=== PATIENT | female | born 1960 | race Caucasian/White ===

== ENCOUNTER → 2018-01-14 | Outpatient (CLI) | payer BC, OTHER ==
[~2018-01-14] MED LIST: ASPI81CH; CALCAVITD; KRILL OIL 3001 EACH
== END | disposition home or self-care (01) ==
LOC: PLD 10:32 → LAB SHORT 10:32
DX: L81.4 Other melanin hyperpigmentation (principal)
CPT/HCPCS: 88305

== ENCOUNTER 2021-06-18 08:11 | Day surgery (SDC) | payer OTHER ==
[~2021-06-18] VITALS: Ht 165.1 cm; Wt 76.7 kg
--- NOTE | 2021-06-18 09:24 | NUR ---
Ambulatory in Day Surgery History, Chart, Medications and Allergies reviewed before start of procedure. Lungs clear T/O to Auscultation. Patient confirms NPO status and agrees with scheduled surgery. Pre-Op teaching done. Pt verbalizes understanding. Patient States Post-Procedure ride home has been arranged.
--- NOTE | 2021-06-18 09:59 | NUR ---
06/18/21 0959 Shahida Ball History, Chart, Medications and Allergies reviewed before start of procedure. Patient confirms NPO status and agrees with scheduled surgery. 3-LEAD EKG REVIEWED WITH PHYSICIAN PRIOR TO START OF PROCEDURE. MONITOR INTACT WITH CONTINUOUS PULSE OXIMETRY AND INTERMITTENT BP. PATIENT DETERMINED TO BE ASA APPROPRIATE FOR PROPOFOL SEDATION PRIOR TO START OF PROCEDURE BY .
--- NOTE | 2021-06-18 10:16 | NUR ---
PT TOLERATING PO FLUIDS AND SNACK. RIDE INFORMED OF STATUS.
--- NOTE | 2021-06-18 10:36 | NUR ---
Discharge instructions reviewed with patient. Patient verbalizes understanding. Copy given to patient to take home. Discharged via wheelchair to private car for ride home
== END 2021-06-18 10:38 | disposition home or self-care (01) ==
LOC: ORSCMMR 08:11 → ORD 09:30 → ORSCSDS 09:30 → ORSCMMR 09:30
PROVIDERS: Internal Medicine Gastroenterology
PROC: 0DJD8ZZ Inspection of Lower Intestinal Tract, Via Natural or Artificial Opening Endoscopic (ICD-10-PCS; principal; 2021-06-18 09:30)
DX: Z12.11 Encounter for screening for malignant neoplasm of colon (principal); Z86.010 Personal history of colon polyps; Z80.0 Family history of malignant neoplasm of digestive organs; K64.8 Other hemorrhoids
CPT/HCPCS: J2704; J7120